=== PATIENT | male | born 1990 | race Caucasian/White ===

== ENCOUNTER 2017-11-19 12:00 | Emergency (ER) | payer OTHER ==
[2017-11-19 12:32] VITALS: BP 126/79
[2017-11-19] MEDS ORDERED: MOTRIN PO ONE (13:36)
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
== END 2017-11-19 14:20 | disposition home or self-care (01) ==
LOC: ED 12:00
DX: R51 Headache (principal)
CPT/HCPCS: 70450; 99283